=== PATIENT | male | born 1945 | race Caucasian/White ===

== ENCOUNTER 2018-03-23 14:29 | Emergency (ER) | payer OTHER, MEDICARE, MEDICAID ==
[2018-03-23 15:39] LABS: ABSOLUTE EOSINOPHILS # (AUTO) 0.1 10^3/uL (0.0-0.6); ABSOLUTE LYMPHOCYTES (AUTO) 1.7 10^3/uL (0.5-4.7); ABSOLUTE MONOCYTES (AUTO) 0.6 10^3/uL (0.1-1.4); ABSOLUTE NEUT (AUTO) 6.9 10^3/uL (1.7-8.2); BASOPHILS % (AUTO) 0.3 % (0-2); EOSINOPHILS % (AUTO) 0.9 % (0-6); HEMATOCRIT 37.1 % (37.9-51.0); HEMOGLOBIN 12.4 g/dL (13.5-17.0); LYMPHOCYTES % (AUTO) 18.1 % (13-45); MEAN CORPUSCULAR HEMOGLOBIN 28.2 pg (27.0-33.4); MEAN CORPUSCULAR HGB CONC 33.4 g/dL (32.0-36.0); MEAN CORPUSCULAR VOLUME 85 fl (80-97); MONOCYTES % (AUTO) 6.4 % (3-13); PLATELET COUNT 238 10^3/uL (150-450); RED BLOOD COUNT 4.39 10^6/uL (4.35-5.55); RED CELL DISTRIBUTION WIDTH 13.7 % (11.5-14.0); SEGMENTED NEUTROPHILS % (AUTO) 74.3 % (42-78); TOTAL CELLS COUNTED % (AUTO) 100 %; WHITE BLOOD COUNT 9.3 10^3/uL (4.0-10.5)
[2018-03-23 15:40] LABS: ALANINE AMINOTRANSFERASE 26 U/L (21-72); ALBUMIN 3.5 g/dL (3.5-5.0); ALKALINE PHOSPHATASE 78 U/L (38-126); ANION GAP 5 (5-19); ASPARTATE AMINO TRANSFERASE 19 U/L (17-59); BILIRUBIN,DIRECT 0.2 mg/dL (0.0-0.4); BILIRUBIN,TOTAL 0.5 mg/dL (0.2-1.3); BLOOD UREA NITROGEN 16 mg/dL (7-20); CALCIUM 9.1 mg/dL (8.4-10.2); CARBON DIOXIDE 34 mmol/L (22-30); CHLORIDE 102 mmol/L (98-107); GLUCOSE 121 mg/dL (75-110); LIPASE 49.4 U/L (23-300); POTASSIUM 4.2 mmol/L (3.6-5.0); SODIUM 140.5 mmol/L (137-145); TOTAL PROTEIN 6.5 g/dL (6.3-8.2)
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
[2018-03-23 17:52] VITALS: BP 128/98
--- NOTE | 2018-03-23 22:25 | EKG REPORT ---
SEVERITY:- OTHERWISE NORMAL ECG - SINUS TACHYCARDIA : Confirmed by: Pam Pinedo MD 23-Mar-2018 22:25:00
== END 2018-03-23 17:59 | disposition home or self-care (01) ==
LOC: ER 14:29
DX: S20.219A Contusion of unspecified front wall of thorax, initial encounter (principal); R07.9 Chest pain, unspecified; V87.7XXA Person injured in collision between other specified motor vehicles (traffic), initial encounter; Z87.891 Personal history of nicotine dependence; I10 Essential (primary) hypertension; J44.9 Chronic obstructive pulmonary disease, unspecified; E11.9 Type 2 diabetes mellitus without complications
CPT/HCPCS: 36415; 71045; 71260; 74177; 80053; 83690; 84484; 85025; 86850; 86900; 86901; 93005; 93010; 99285

== ENCOUNTER 2018-08-11 12:25 | Emergency (ER) | payer MEDICARE, MEDICAID ==
[2018-08-11 12:52] VITALS: BP 176/86
--- NOTE | 2018-08-11 13:07 | ER Document Report ---
ED Medical Screen (RME) - General Chief Complaint: Shortness Of Breath Stated Complaint: SHORTNESS OF BREATH Time Seen by Provider: 08/11/18 13:05 Primary Care Provider: STANISLAW DAS [Primary Care Provider] - Follow up as needed Notes: Patient says he is having difficulty breathing and wheezing. Also coughing with some phlegm production. History of COPD, former smoker. Went to [facility] a couple of weeks ago and was told he had pneumonia. He was given an antibiotic to take which he says he is finished and when he did finish the medicine, his symptoms came back. He says 1 of the medications only had about 4 or 5 pills, sounds like Zithromax. Patient says he once had some surgery because of a small area of cancer in his lung. TRAVEL OUTSIDE OF THE [place] IN LAST 30 DAYS: No - Related Data Allergies/Adverse Reactions: No Known Allergies Allergy (Verified 03/16/15 10:19) Past Medical History - Past Medical History Cardiac Medical History: Reports: Hx Congestive Heart Failure, Hx Hypercholesterolemia, Hx Hypertension Pulmonary Medical History: Reports: Hx Asthma, Hx COPD, Hx Pneumonia Endocrine Medical History: Reports: Hx Diabetes Mellitus Type 2 Renal/ Medical History: Denies: Hx Peritoneal Dialysis GI Medical History: Reports: Hx Hiatal Hernia, Hx Ulcer Past Surgical History: Reports: Hx Cardiac Catheterization - Immunizations Hx Diphtheria, Pertussis, Tetanus Vaccination: Yes Physical Exam - Vital signs Vitals: Temp Resp BP Pulse Ox 98.3 F 36 H 176/86 H 86 L 08/11/18 12:44 08/11/18 12:44 08/11/18 12:44 08/11/18 12:44 Course - Vital Signs Vital signs: Temp Pulse Resp BP Pulse Ox 98.3 F 36 H 176/86 H 86 L 08/11/18 12:44 08/11/18 12:44 08/11/18 12:44 08/11/18 12:44 Doctor's Discharge - Discharge Referrals: STANISLAW DAS [Primary Care Provider] - Follow up as needed
== END 2018-08-11 15:29 | disposition left against medical advice (07) ==
LOC: ER 12:25
DX: Z53.21 Procedure and treatment not carried out due to patient leaving prior to being seen by health care provider (principal); R06.02 Shortness of breath; R05 Cough; J44.9 Chronic obstructive pulmonary disease, unspecified; Z87.891 Personal history of nicotine dependence; I50.9 Heart failure, unspecified; I11.0 Hypertensive heart disease with heart failure; E11.9 Type 2 diabetes mellitus without complications
CPT/HCPCS: 36415; 99281